=== PATIENT | male | born 1940 | race Caucasian/White ===

== ENCOUNTER 2017-01-18 05:41 | Inpatient (IN) | payer MEDICARE, OTHER ==
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
--- NOTE | ~2017-01-18 | DS ---
Discharge Summary [facility] [address] [place]. [address] NAME: CRIS VIGIL : 40 STATUS : DIS IN PAT#: [id number] AGE: 76 ADM/REG DATE : 01/19/17 MR#: [id number] REPORT SERV DATE: 01/25/17 DICTATED BY: RANJAN CALL DATE: 01/20/17 REPORT STATUS : Draft TRANSCRIBED BY: MODL DATE: 01/20/17 ADMISSION DATE: 01/19/2017 DISCHARGE DATE: 01/20/2017 DISCHARGE DIAGNOSES: 1. Probable aspiration episode with aspiration pneumonitis. 2. CT of the chest revealing possible infiltrates consistent with aspiration pneumonia, however, the patient has not show any clinical signs consistent with a pneumonia. 3. Baseline chronic hypoxic respiratory failure, 2 L of oxygen at baseline with BiPAP nightly. This has been stable throughout the hospital stay. 4. Chronic obstructive pulmonary disease. 5. Pulmonary hypertension. 6. Functional paraplegia. 7. History of cervical spine injury. 8. Neurogenic bladder. 9. History of endocarditis as well as history of liver abscess. CONSULTS: None. PROCEDURES: None. HOSPITAL COURSE: This is a 76-year-old gentleman who was admitted to the hospital with a possible aspiration pneumonia. For details, please refer to my own H and P. In summary, the patient was admitted and was simply observed as patient appeared nearly back at his baseline. The patient was afebrile and the patient's initial lab work showed no leukocytosis. Instead of starting him on antibiotics, the patient was simply monitored. On the second day of the hospital stay, CT of the chest revealed what appears to be infiltrates in the bilateral lower lobes more prominent on the right lower lobe consistent with a history of possible aspiration. Even then the patient did not exhibit any symptoms of pneumonia including fever, cough, worsening shortness of breath. The patient's lab work also continued to be normal with normal white blood cell count and normal procalcitonin level. Given his clinical history and CT imaging, the patient was started on Augmentin by p.o. After two days of uncomplicated hospital stay with simple monitoring, patient is now being discharged home with close outpatient followup instructions. Of note, the patient was seen by our physical therapy and was recommended to be discharged to a SNF, however, the patient refused, and given the patient has baseline history of functional paraplegia and the fact that he has a lot of help at home, it was felt reasonable to still discharge him home. DISPOSITION: Home. DISCHARGE MEDICATIONS: No changes other than a seven-day course of Augmentin 875 mg p.o. b.i.d. FOLLOWUP: 1. Please follow up with PCP in the next one to two weeks. 2. Please follow up with solvent recoverer as already scheduled, which is in five days. Discharge Summary [address] [address] NAME: CRIS VIGIL : 40 STATUS : DIS IN PAT#: [id number] AGE: 76 ADM/REG DATE : 01/19/17 MR#: [id number] REPORT SERV DATE: 01/25/17 DICTATED BY: RANJAN CALL DATE: 01/20/17 REPORT STATUS : Draft TRANSCRIBED BY: ELSY DATE: 01/20/17 TIME SPENT: A total of 40 minutes spent in coordinating this patient's discharge today. COURTNEY/ELSY Ranjan Call MD / [id number] CC: MD VILMA Crouch BETHANY ELAINE
[~2017-01-18 05:41] MED LIST: ADVAIR250 INH; ADVIL PO; AVINZA PO; AVINZA60 PO; BACDS PO; BACLOFEN20 MG PO; BUM1 PO; C2 PO; COMBIVENT INH; COMBIVENT RESPIM4 GM INH; CONSTULOSE PO; COUMADIN3 MG PO; DEPO-TESTOS200 MG/ML IM; DSS PO; DUONEB INH; ELIQUIS 5 MG TAB5 MG PO; ENULOSE PO; FLOMAX4 PO; KLOR-CON M2020 MEQ PO; LACT30UDL PO; LEVAQUIN750 MG PO; LEVSINTAB PO; LIOR10 PO; MAXIMUM D3 PO; MONODOX100 MG PO; MSCONT60 PO; MSCONTIN PO; NEUR100 PO; NEUR300 PO; OMNICEF300 PO; PRILO PO; PROVENTSOL INH; PROVHFA INH; PROVIGIL1 PO; PROVIGIL2 PO; REFRES1 OPH; ROCEPHIN2 G2 IM; ROXICODONE30 MG PO; SANTYL250 MG/GM TOP; SILVADENE1 % TOP; TESTOSTERONE IM; TESTOSTERONE INJ IM; VIBRATAB100 MG PO; ZINC OTC PO; ZINC TOP; ZITH250 PO
[2017-01-18 08:10] LABS: BASOPHILS 0 %; EOSINOPHILS 0 %; HEMATOCRIT 40.1 % (40.0-51.0); HEMOGLOBIN 13.3 g/dL (13.6-17.8); IMMATURE GRANULOCYTES 0.1 %; IMMATURE GRANULOCYTES ABSOLUTE 0.01 10/3/uL (0.0-0.11); LYMPHOCYTES 6.6 %; LYMPHOCYTES ABSOLUTE 0.46 10/3/uL (0.67-4.30); MEAN CORPUSCULAR HEMOGLOB 31.7 pg (26.0-34.0); MEAN CORPUSCULAR VOLUME 95.5 fL (80-100); MEAN PLATELET VOLUME 11.2 fL (9.2-13.0); MONOCYTES 0.6 %; MONOCYTES ABSOLUTE 0.04 10/3/uL (0.21-1.20); NEUTROPHILS 92.7 %; NEUTROPHILS ABSOLUTE 6.49 10/3/uL (2.02-8.40); PLATELET COUNT 150 10/3/uL (150-400); RBC DISTRIBUTION WIDTH 13.5 % (12.0-16.0)
[2017-01-18 08:12] LABS: MANUAL DIFF NO %; MEAN CORPUS HGB CONC 33.2 g/dL (32.0-36.0)
[2017-01-18 08:25] LABS: A/G RATIO 0.7 (0.7-1.9); ALBUMIN 2.8 G/DL (3.5-5.0); ALKALINE PHOSPHATASE 70 U/L (45-117); BUN (BLOOD UREA NITROGEN) 23 MG/DL (6-23); CALCIUM, SERUM 8.7 MG/DL (8.5-10.4); CHLORIDE, SERUM 104 MMOL/L (96-112); CO2 (CARBON DIOXIDE) 32 MMOL/L (24-34); CREATININE 0.94 MG/DL (0.70-1.30); GFR AFRICAN AMERICAN 91 ML/MIN (>=60); GFR NON AFRICAN AMERICAN 78 ML/MIN (>=60); GLOBULIN 3.9 G/DL (2.5-4.1); GLUCOSE, SERUM 169 MG/DL (60-99); POTASSIUM, SERUM 4.3 MMOL/L (3.5-5.3); SGOT(AST) 18 U/L (5-40); SGPT(ALT) 18 U/L (5-65); SODIUM, SERUM 144 MMOL/L (135-148); TOTAL BILIRUBIN 0.4 MG/DL (0-1.2); TOTAL PROTEIN 6.7 G/DL (6.0-8.5)
[2017-01-18 10:33] LABS: PROCALCITONIN 0.29 ng/mL (<0.5)
[2017-01-18 14:09] LABS: ASCORBIC ACID (UR NOT ORDER) NEG (NEG); BILIRUBIN, URINE NEGATIVE (NEG); KETONE, URINE NEGATIVE (NEG); LEUKOCYTE ESTERASE(NOT OR LARGE (NEG); WBC (NOT ORDERED) (RFLEX) 141 (0-5)
[2017-01-19 06:10] LABS: CALCIUM, SERUM 8.9 MG/DL (8.5-10.4); CHLORIDE, SERUM 108 MMOL/L (96-112); CO2 (CARBON DIOXIDE) 31 MMOL/L (24-34); CREATININE 0.76 MG/DL (0.70-1.30); GFR AFRICAN AMERICAN 103 ML/MIN (>=60); GFR NON AFRICAN AMERICAN 89 ML/MIN (>=60); GLUCOSE, SERUM 137 MG/DL (60-99); POTASSIUM, SERUM 3.9 MMOL/L (3.5-5.3); SODIUM, SERUM 145 MMOL/L (135-148)
[2017-01-19 06:13] LABS: BUN (BLOOD UREA NITROGEN) 19 MG/DL (6-23)
[2017-01-19 06:25] LABS: BASOPHILS 0.1 %; BASOPHILS ABSOLUTE 0.01 10/3/uL (0.0-0.16); EOSINOPHILS 0 %; HEMATOCRIT 38.1 % (40.0-51.0); HEMOGLOBIN 12.5 g/dL (13.6-17.8); IMMATURE GRANULOCYTES 0.2 %; IMMATURE GRANULOCYTES ABSOLUTE 0.02 10/3/uL (0.0-0.11); LYMPHOCYTES 10.4 %; LYMPHOCYTES ABSOLUTE 1.04 10/3/uL (0.67-4.30); MANUAL DIFF NO %; MEAN CORPUS HGB CONC 32.8 g/dL (32.0-36.0); MEAN CORPUSCULAR HEMOGLOB 31.1 pg (26.0-34.0); MEAN CORPUSCULAR VOLUME 94.8 fL (80-100); MEAN PLATELET VOLUME 11.2 fL (9.2-13.0); MONOCYTES 5.3 %; MONOCYTES ABSOLUTE 0.53 10/3/uL (0.21-1.20); PLATELET COUNT 164 10/3/uL (150-400); RBC DISTRIBUTION WIDTH 13.8 % (12.0-16.0); RED CELL COUNT 4.02 10/6/uL (4.7-6.1)
[2017-01-20 04:40] LABS: BASOPHILS 0.1 %; BASOPHILS ABSOLUTE 0.01 10/3/uL (0.0-0.16); EOSINOPHILS ABSOLUTE 0.07 10/3/uL (0.0-0.53); HEMOGLOBIN 13.6 g/dL (13.6-17.8); IMMATURE GRANULOCYTES 0.3 %; IMMATURE GRANULOCYTES ABSOLUTE 0.02 10/3/uL (0.0-0.11); LYMPHOCYTES 19.9 %; LYMPHOCYTES ABSOLUTE 1.43 10/3/uL (0.67-4.30); MANUAL DIFF NO %; MEAN CORPUS HGB CONC 33.2 g/dL (32.0-36.0); MEAN CORPUSCULAR HEMOGLOB 31.3 pg (26.0-34.0); MEAN CORPUSCULAR VOLUME 94.3 fL (80-100); MEAN PLATELET VOLUME 10.5 fL (9.2-13.0); MONOCYTES 7.1 %; MONOCYTES ABSOLUTE 0.51 10/3/uL (0.21-1.20); NEUTROPHILS 71.6 %; NEUTROPHILS ABSOLUTE 5.16 10/3/uL (2.02-8.40); PLATELET COUNT 181 10/3/uL (150-400); RBC DISTRIBUTION WIDTH 13.7 % (12.0-16.0); RED CELL COUNT 4.35 10/6/uL (4.7-6.1); WHITE BLOOD CELLS 7.2 10/3/uL (4.5-10.5)
[2017-01-20 04:49] LABS: BUN (BLOOD UREA NITROGEN) 16 MG/DL (6-23); CALCIUM, SERUM 9.1 MG/DL (8.5-10.4); CHLORIDE, SERUM 106 MMOL/L (96-112); CO2 (CARBON DIOXIDE) 30 MMOL/L (24-34); CREATININE 0.76 MG/DL (0.70-1.30); GFR AFRICAN AMERICAN 103 ML/MIN (>=60); GFR NON AFRICAN AMERICAN 89 ML/MIN (>=60); POTASSIUM, SERUM 4.1 MMOL/L (3.5-5.3); SODIUM, SERUM 143 MMOL/L (135-148)
[2017-01-20 04:53] LABS: GLUCOSE, SERUM 103 MG/DL (60-99)
[2017-01-20 09:52] LABS: BE (BASE EXCESS) 6.5 MEQ/L (0 +/- 2.5); CARBOXYHEMOGLOBIN 0.3 % (0-3); HCO3 (ACTUAL BICARBONATE) 31.6 MEQ/L (23-27); HEMOBLOGIN CONTENT 15.6 G/DL (14-18); INSTRUMENT SERIAL # 35151; METHEMOGLOBIN 0.9 % (0-3); O2 CONTENT 19.6 VOL% (18-24); PCO2 (CO2 TENSION) 46 MMHG (35-45); PO2 (O2 TENSION) 60 MMHG (79-93); pH 7.45 (7.37-7.43)
[2017-01-20 09:53] LABS: ALLENS TEST Pos; SAMPLE Arterial
[2017-01-20] MEDS ORDERED: AUG875 PO (10:07)
== END 2017-01-20 16:36 | disposition home health service (06) | DRG 178 ==
LOC: 6NO 05:41
PROVIDERS: Internal Medicine; Internal Medicine Pulmonary Disease
DX: J69.0 Pneumonitis due to inhalation of food and vomit (principal); J96.11 Chronic respiratory failure with hypoxia; I27.2 Other secondary pulmonary hypertension; Z99.81 Dependence on supplemental oxygen; N31.9 Neuromuscular dysfunction of bladder, unspecified; J44.9 Chronic obstructive pulmonary disease, unspecified; Z86.19 Personal history of other infectious and parasitic diseases
CPT/HCPCS: 36600; 71010; 71250; 80048; 80053; 81001; 82805; 84145; 85025; 87086; 92610-GN; 94640; 97162-GP; A9270-GY; G8978-CL-GP; G8979-CK-GP; G8996-CI-GN; G8997-CI-GN; G8998-CI-GN

== ENCOUNTER 2017-02-03 03:59 | Inpatient (IN) | payer MEDICARE ==
--- NOTE | ~2017-02-03 | HP ---
History And Physical [address] [place]. [address] NAME: CRIS VIGIL : 40 STATUS : ADM IN [facility]#: [id number] AGE: 76 ADM/REG DATE : 02/03/17 MR#: [id number] REPORT SERV DATE: 02/03/17 DICTATED BY: EDDIE RAMIREZ DATE: 02/03/17 REPORT STATUS : Draft TRANSCRIBED BY: MODL DATE: 02/03/17 DATE OF ADMISSION: 02/03/2017 CHIEF COMPLAINT: A 76-year-old male presenting with shortness of breath and cough. HISTORY OF PRESENT ILLNESS: The patient's history was obtained through careful interview with the patient coupled with review of [facility] medical records. The patient was hospitalized in late 12/2016 and in early 01/2017 with presumptive aspiration pneumonia. He improved with antibiotics and was sent home with a total antibiotic course that lasted 10 days. He had considerable improvement in his symptoms with antibiotics, but completed antibiotics on 01/30/2017. Unfortunately by 01/31/2017 and 02/01/2017, the patient began to develop a low-grade fever again, and states in the last 48 hours, he has had shortness of breath characterized by dyspnea on exertion and increasing nonproductive cough and persistent subjective fevers and chills. No chest pain, but he has had lightheadedness and orthostatics symptoms. He does not recall any aspiration events in the last week. He describes lower back pain, chronic condition, aching quality, 7 to 8 out of 10 severity. No sciatica or radiation. No history of diabetes. No change of bowel or bladder habit. REVIEW OF SYSTEMS: Otherwise, a 14-point review of systems was obtained and was negative. PAST MEDICAL HISTORY: 1. Strep pneumonia, septic toxic shock. 2. Aspiration pneumonia. 3. COPD, on 2 L nasal cannula oxygen chronically. 4. Systolic congestive heart failure, ejection fraction 45% with left ventricular hypertrophy and pulmonary hypertension. 5. Chronic paraplegia. 6. Cervical spine injury and back injury. 7. Neurogenic bladder with bilateral hydronephrosis, followed by Dr. Telles. 8. Endocarditis of the tricuspid valve with strep viridans bacteremia. 9. Liver abscess with bile duct injury and stent placement. 10.DVT, on chronic Eliquis. 11.Sacral decubitus, followed by Dr. Stewart. 12.Benign prostatic hypertrophy. 13.Obstructive sleep apnea, on BiPAP. 14.Thyroid nodule with negative biopsy. 15.MRSA. History And Physical [address] [address] NAME: CRIS VIGIL : 40 STATUS : ADM IN PAT#: [id number] AGE: 76 ADM/REG DATE : 02/03/17 MR#: [id number] REPORT SERV DATE: 02/03/17 DICTATED BY: EDDIE RAMIREZ DATE: 02/03/17 REPORT STATUS : Draft TRANSCRIBED BY: ELSY DATE: 02/03/17 PAST SURGICAL HISTORY: 1. C3-C4 fusion. 2. IVC filter placement. 3. Small-bowel obstruction surgery as a child. 4. Cholecystectomy. ALLERGIES: NO KNOWN DRUG ALLERGIES. SOCIAL HISTORY: Quit smoking in 1987. No alcohol abuse. He is . Lives with a disabled son in his 50s. Lives in [place], [place]. FAMILY HISTORY: Heart disease. CURRENT MEDICATIONS: Include: 1. Albuterol inhaler. 2. Eliquis 5 mg p.o. b.i.d. 3. Baclofen 10 mg with breakfast and lunch, 20 mg at supper. 4. Bumex p.r.n. 5. Vitamin D. 6. Colace 200 mg p.o. b.i.d. 7. Aricept 5 mg p.o. at bedtime. 8. Advair inhaled twice a day. 9. Neurontin 100 mg in the morning and 300 mg at night. 10.Levsin 0.125 mg every 8 hours p.r.n. 11.Combivent. 12.Lactulose. 13.Provigil 100 mg p.o. b.i.d. 14.Omeprazole 20 mg p.o. daily. 15.Oxycodone 30 mg every four hours p.r.n. 16.Potassium 20 mEq p.o. daily. 17.Flomax 0.4 mg p.o. daily. 18.Testosterone every other week. PHYSICAL EXAMINATION: VITAL SIGNS: Temperature 98.5, pulse 102, blood pressure 102/52, respiratory rate 24, and O2 saturation 92% on 2 L nasal cannula. GENERAL: An ill-appearing male, in evidence of distress secondary to shortness of breath and cough. HEENT: Pupils equal, round, and reactive to light. No conjunctival pallor. No scleral icterus. Nares are patent. Oropharynx is clear of obstruction. Moist mucous membranes. NECK: Trachea midline. No thyromegaly. LYMPH: No cervical lymphadenopathy. No supraclavicular lymphadenopathy. RESPIRATORY: The patient has diminished breath sounds at the base of lungs, maybe some mild bibasilar crackles. I do not appreciate focal egophony. No wheezes. The patient has a labored respiratory effort though. CARDIOVASCULAR: Tachycardic. Regular rhythm. No murmurs, rubs, or gallops. No extremity History And Physical [address] [address] NAME: CRIS VIGIL : 40 STATUS : ADM IN [facility]#: [id number] AGE: 76 ADM/REG DATE : 02/03/17 MR#: [id number] REPORT SERV DATE: 02/03/17 DICTATED BY: EDDIE RAMIREZ DATE: 02/03/17 REPORT STATUS : Draft TRANSCRIBED BY: ELSY DATE: 02/03/17 edema is appreciated. ABDOMEN: Soft, nontender, nondistended. Normal bowel sounds auscultated throughout. No hepatosplenomegaly. DERMATOLOGICAL: Warm and dry extremities. No pallor. No cyanosis. PSYCHIATRIC: Normal affect. Good mood. Alert and oriented x3. LABORATORY DATA: White blood cell count 14.7, hemoglobin 15, hematocrit 45, platelets 165. Sodium 138, potassium 4.3, chloride 97, bicarb 28, BUN 25, creatinine 1.0, glucose 232. Lactic acid 1.7. ABG demonstrates pH 7.38, PaCO2 of 52, PaO2 of 63, and bicarb of 31. STUDIES: 1. Chest x-ray reported from outlying facility shows bilateral pneumonia. 2. EKG by my own evaluation shows sinus tachycardia. ASSESSMENT AND PLAN: 1. Recurrent pneumonia, question possible aspiration. We will check a swallow study. Blood cultures were checked at [facility] in [place]. Placed on IV antibiotics. 2. Sepsis. White blood cell count of 14.7, tachycardia, tachypnea. Check blood cultures which were done at [facility]. Place on IV antibiotics. 3. Chronic paraplegia from back injury and cervical spine surgery and injury. 4. Decubitus ulcer, Wound Care consult. 5. Hyperglycemia. Check hemoglobin A1c. Placed on sliding scale insulin. 6. Obstructive sleep apnea. Continue home BiPAP. 7. Chronic obstructive pulmonary disease. Placed on Duo nebulizers. 8. Neurogenic bladder. Check urinalysis. 9. Chronic diastolic congestive heart failure with pulmonary hypertension. DAX/ELSY Eddie Ramirez M.D. / [id number] CC: MD Brayan Crouch M.D.
--- NOTE | ~2017-02-03 | DS ---
Discharge Summary [address] [place]. [address] NAME: CRIS VIGIL : 40 STATUS : DIS IN PAT#: [id number] AGE: 76 ADM/REG DATE : 02/03/17 MR#: [id number] REPORT SERV DATE: 02/10/17 DICTATED BY: ALMA APPLE DATE: 02/09/17 REPORT STATUS : Draft TRANSCRIBED BY: ELSY DATE: 02/09/17 ADMISSION DATE: 02/03/2017 DISCHARGE DATE: 02/09/2017 DISCHARGE DIAGNOSES: 1. Pneumonia. 2. Chronic hypercapnic respiratory failure. 3. Chronic obstructive pulmonary disease without exacerbation at 2 L nasal cannula, home. 4. Chronic systolic heart failure. 5. Cervical spine injury/paraplegia. 6. Decubitus ulcer present on admission. Continue wound care by Home Health. 7. Neurogenic bladder. 8. Pulmonary hypertension/cor pulmonale. 9. History of deep vein thrombosis with IVC filter and on Eliquis. 10.Chronic pain. 11.Obstructive sleep apnea on home BiPAP. DISCHARGE MEDICATIONS: Include: 1. Eliquis 5 mg p.o. b.i.d. 2. Baclofen 10 mg p.o. with breakfast and lunch. 3. Baclofen 20 mg p.o. with supper. 4. Cholecalciferol 10,000 units p.o. q. seven days. 5. Colace 200 mg p.o. b.i.d. 6. Aricept 5 mg p.o. at bedtime. 7. Neurontin 100 mg p.o. in the morning. 8. Neurontin 300 mg at bedtime. 9. Lactulose 20 mL p.o. q.48 hours. 10.Provigil 100 mg p.o. b.i.d. 11.Prilosec 20 mg p.o. b.i.d. 12.Flomax 0.4 mg p.o. daily. 13.Albuterol sulfate 0.083%, 1 neb inhaled b.i.d. 14.Advair Diskus 250/50 mcg one puff inhaled b.i.d. 15.Combivent 1 puff inhaled four times a day p.r.n. 16.Bumex 1 to 2 mg p.o. daily p.r.n. edema. 17.Levsin 0.125 p.o. q.8 hours p.r.n. 18.Oxycodone 30 mg p.o. q.i.d. p.r.n. 19.Testosterone 1 dose IM q.14 days. 20.Augmentin 875 mg p.o. b.i.d. 21.Doxycycline 100 mg p.o. b.i.d. 22.Florastor cap 1 tab p.o. b.i.d. DISPOSITION AND FOLLOWUP: The patient medically stable for discharge home with Home Health physical therapy and wound care. Follow up with primary care physician in one week. HISTORY AND PHYSICAL: Per initial assessment. Discharge Summary [address] [address] NAME: CRIS VIGIL : 40 STATUS : DIS IN PAT#: [id number] AGE: 76 ADM/REG DATE : 02/03/17 MR#: [id number] REPORT SERV DATE: 02/10/17 DICTATED BY: ALAM APPLE DATE: 02/09/17 REPORT STATUS : Draft TRANSCRIBED BY: ELSY DATE: 02/09/17 DISCHARGE VITALS: Temperature 97.3, heart rate 73, blood pressure 111/54, respiratory rate 18, O2 saturation 97 on 2 L. DISCHARGE LABS: WBC of 8, hemoglobin of 14.4, hematocrit 43.9, platelets 168. Sodium 142, potassium 4.4, chloride 105, bicarb 29, BUN 19, creatinine 0.75, magnesium 2.5. IMAGIN. Chest x-ray. Impression: Worsening right basilar airspace consolidation potential of developing mild left basilar consolidation on 02/03/2017. 2. Chest x-ray. Impression: Decreased right basilar infiltrate. Improved aeration of the left base with minimal residual linear atelectasis on 02/06/2017. 3. Swallow evaluation. Impression: No aspiration. The patient exhibits flash penetration with thin liquids. The patient also noted to have mild to moderate residual with clears. The patient with large osteophytes of the esophagus, but the patient able to protect airway above. RECOMMENDATION: The patient must be fully upright for all p.o. intake. The patient must take small sips, small bites. The patient must swallow two times per bolus. The patient was educated regarding the above. HOSPITAL COURSE: The patient was admitted for further management of sepsis and pneumonia. The patient was started on vancomycin and Maxipime, which he continued throughout the course of the hospital stay. Wound Care was consulted for decubitus ulcers. The patient was placed back on home diuretics, inhalers. The patient responded well to medical management. By day of discharge, afebrile. WBCs within normal limit. No evidence of sepsis. The patient will be discharged with home regimen as described above. Follow up with primary care physician in one week. Home Health to follow as an outpatient, physical therapy and wound care. Instructed to take all medications as described above. Total time for discharge planning 35 minutes. DICTATED BY: Zak Scott MD RLV/ELSY Zak Scott MD / [id number] CC: MD VILMA Hernandez BETHANY ELAINE
[~2017-02-03 03:59] MED LIST changes: +AUG875 PO
[2017-02-03] MEDS ORDERED: ALBUTEROL0.083 % INH (04:34)
[2017-02-03] MEDS ORDERED: MAXIMUM D3 PO (04:35)
[2017-02-03] MEDS ORDERED: ARICEPT5 PO ×2 (04:35→04:40)
[2017-02-03] MEDS ORDERED: ELIQUIS 5 MG TAB5 MG PO (04:36)
[2017-02-03] MEDS ORDERED: DSS PO (04:38)
[2017-02-03] MEDS ORDERED: ADVAIR250 INH (04:38)
[2017-02-03] MEDS ORDERED: COMBIVENT RESPIM4 GM INH (04:38)
[2017-02-03] MEDS ORDERED: ROXICODONE30 MG PO (04:38)
[2017-02-03] MEDS ORDERED: FLOMAX4 PO (04:38)
[2017-02-03] MEDS ORDERED: NEUR300 PO (04:39)
[2017-02-03] MEDS ORDERED: LIOR10 PO (04:39)
[2017-02-03] MEDS ORDERED: BACLOFEN20 MG PO (04:39)
[2017-02-03] MEDS ORDERED: BUM1 PO (04:39)
[2017-02-03] MEDS ORDERED: NEUR100 PO (04:39)
[2017-02-03] MEDS ORDERED: KDUR20 PO (04:39)
[2017-02-03] MEDS ORDERED: PRILO PO (04:40)
[2017-02-03] MEDS ORDERED: PROVIGIL1 PO (04:40)
[2017-02-03] MEDS ORDERED: CONSTULOSE PO (04:41)
[2017-02-03] MEDS ORDERED: LEVSINTAB PO/SL (04:41)
[2017-02-03] MEDS ORDERED: TESTOSTERONE IM (04:42)
[2017-02-03 06:52] LABS: BASOPHILS 0.2 %; BASOPHILS ABSOLUTE 0.02 10/3/uL (0.0-0.16); EOSINOPHILS 0.1 %; EOSINOPHILS ABSOLUTE 0.01 10/3/uL (0.0-0.53); HEMATOCRIT 40.4 % (40.0-51.0); HEMOGLOBIN 13.3 g/dL (13.6-17.8); IMMATURE GRANULOCYTES 0.5 %; IMMATURE GRANULOCYTES ABSOLUTE 0.06 10/3/uL (0.0-0.11); LYMPHOCYTES ABSOLUTE 1.04 10/3/uL (0.67-4.30); MEAN CORPUS HGB CONC 32.9 g/dL (32.0-36.0); MEAN CORPUSCULAR HEMOGLOB 31.7 pg (26.0-34.0); MEAN CORPUSCULAR VOLUME 96.2 fL (80-100); MEAN PLATELET VOLUME 10.7 fL (9.2-13.0); MONOCYTES 4.6 %; NEUTROPHILS 86.6 %; NEUTROPHILS ABSOLUTE 11.32 10/3/uL (2.02-8.40); PLATELET COUNT 162 10/3/uL (150-400); RBC DISTRIBUTION WIDTH 13.6 % (12.0-16.0)
[2017-02-03 06:53] LABS: MANUAL DIFF NO %; WHITE BLOOD CELLS 13.1 10/3/uL (4.5-10.5)
[2017-02-03 06:56] LABS: INTERNATIONAL NORMAL RATI 1.7 UNITS (-)
[2017-02-03 06:57] LABS: PROTIME (NOT ORD) 19.8 SEC (12.0-14.5)
[2017-02-03 07:12] LABS: PARTIAL THROMBO TIME 48.5 SEC (22.5-37.2)
[2017-02-03 07:15] LABS: A/G RATIO 0.8 (0.7-1.9); ALBUMIN 2.7 G/DL (3.5-5.0); ALKALINE PHOSPHATASE 63 U/L (45-117); BUN (BLOOD UREA NITROGEN) 20 MG/DL (6-23); CALCIUM, SERUM 8.2 MG/DL (8.5-10.4); CHLORIDE, SERUM 107 MMOL/L (96-112); CK-MB 2.1 NG/ML; CO2 (CARBON DIOXIDE) 29 MMOL/L (24-34); CPK 37 U/L (0-200); CREATININE 0.76 MG/DL (0.70-1.30); GFR AFRICAN AMERICAN 103 ML/MIN (>=60); GFR NON AFRICAN AMERICAN 89 ML/MIN (>=60); GLOBULIN 3.3 G/DL (2.5-4.1); GLUCOSE, SERUM 89 MG/DL (60-99); POTASSIUM, SERUM 4.3 MMOL/L (3.5-5.3); SGOT(AST) 21 U/L (5-40); SGPT(ALT) 21 U/L (5-65); SODIUM, SERUM 142 MMOL/L (135-148); TOTAL BILIRUBIN 0.8 MG/DL (0-1.2); TROPONIN I <0.02 NG/ML (<0.05); ULTRASENSITIVE TSH 0.126 MCIU/ML (0.358-3.740)
[2017-02-03 07:21] LABS: B NATRIURETIC PEPTIDE (BNP) 149.7 PG/ML (< 100.0)
[2017-02-03 07:29] LABS: GLYCOHEMOGLOBIN (HbA1c) 5.3 % (4.7-6.1)
[2017-02-03 11:42] LABS: PROCALCITONIN 0.33 ng/mL (<0.5)
[2017-02-03 16:38] LABS: ASCORBIC ACID (UR NOT ORDER) NEG (NEG); BILIRUBIN, URINE NEGATIVE (NEG); KETONE, URINE NEGATIVE (NEG); LEUKOCYTE ESTERASE(NOT OR TRACE (NEG); WBC (NOT ORDERED) (RFLEX) 2 (0-5)
[2017-02-04 04:28] LABS: BASOPHILS 0.1 %; BASOPHILS ABSOLUTE 0.01 10/3/uL (0.0-0.16); EOSINOPHILS 1.3 %; HEMATOCRIT 39.3 % (40.0-51.0); HEMOGLOBIN 12.9 g/dL (13.6-17.8); IMMATURE GRANULOCYTES 0.3 %; IMMATURE GRANULOCYTES ABSOLUTE 0.02 10/3/uL (0.0-0.11); LYMPHOCYTES 16.6 %; LYMPHOCYTES ABSOLUTE 1.24 10/3/uL (0.67-4.30); MEAN CORPUS HGB CONC 32.8 g/dL (32.0-36.0); MEAN CORPUSCULAR HEMOGLOB 31.5 pg (26.0-34.0); MEAN CORPUSCULAR VOLUME 95.9 fL (80-100); MEAN PLATELET VOLUME 10.7 fL (9.2-13.0); MONOCYTES 6.8 %; MONOCYTES ABSOLUTE 0.51 10/3/uL (0.21-1.20); NEUTROPHILS 74.9 %; NEUTROPHILS ABSOLUTE 5.59 10/3/uL (2.02-8.40); PLATELET COUNT 145 10/3/uL (150-400); RBC DISTRIBUTION WIDTH 13.5 % (12.0-16.0)
[2017-02-04 04:32] LABS: MANUAL DIFF NO %; WHITE BLOOD CELLS 7.5 10/3/uL (4.5-10.5)
[2017-02-04 04:47] LABS: CALCIUM, SERUM 8.5 MG/DL (8.5-10.4); CHLORIDE, SERUM 108 MMOL/L (96-112); CO2 (CARBON DIOXIDE) 30 MMOL/L (24-34); CREATININE 0.74 MG/DL (0.70-1.30); GFR AFRICAN AMERICAN 104 ML/MIN (>=60); GFR NON AFRICAN AMERICAN 90 ML/MIN (>=60); GLUCOSE, SERUM 87 MG/DL (60-99); POTASSIUM, SERUM 3.8 MMOL/L (3.5-5.3); SODIUM, SERUM 141 MMOL/L (135-148)
[2017-02-04 04:49] LABS: BUN (BLOOD UREA NITROGEN) 16 MG/DL (6-23)
[2017-02-05 06:57] LABS: BASOPHILS 0.3 %; BASOPHILS ABSOLUTE 0.02 10/3/uL (0.0-0.16); EOSINOPHILS 2.6 %; EOSINOPHILS ABSOLUTE 0.16 10/3/uL (0.0-0.53); HEMATOCRIT 39.9 % (40.0-51.0); HEMOGLOBIN 13.3 g/dL (13.6-17.8); IMMATURE GRANULOCYTES 0.2 %; IMMATURE GRANULOCYTES ABSOLUTE 0.01 10/3/uL (0.0-0.11); LYMPHOCYTES 22.2 %; LYMPHOCYTES ABSOLUTE 1.39 10/3/uL (0.67-4.30); MEAN CORPUS HGB CONC 33.3 g/dL (32.0-36.0); MEAN CORPUSCULAR HEMOGLOB 31.5 pg (26.0-34.0); MEAN CORPUSCULAR VOLUME 94.5 fL (80-100); MEAN PLATELET VOLUME 10.7 fL (9.2-13.0); MONOCYTES 5.8 %; MONOCYTES ABSOLUTE 0.36 10/3/uL (0.21-1.20); NEUTROPHILS 68.9 %; NEUTROPHILS ABSOLUTE 4.32 10/3/uL (2.02-8.40); PLATELET COUNT 160 10/3/uL (150-400); RBC DISTRIBUTION WIDTH 13.6 % (12.0-16.0); RED CELL COUNT 4.22 10/6/uL (4.7-6.1); WHITE BLOOD CELLS 6.3 10/3/uL (4.5-10.5)
[2017-02-05 07:05] LABS: MANUAL DIFF NO %
[2017-02-05 07:11] LABS: CALCIUM, SERUM 8.8 MG/DL (8.5-10.4); CHLORIDE, SERUM 109 MMOL/L (96-112); CO2 (CARBON DIOXIDE) 33 MMOL/L (24-34); CREATININE 0.65 MG/DL (0.70-1.30); GFR AFRICAN AMERICAN 110 ML/MIN (>=60); GFR NON AFRICAN AMERICAN 95 ML/MIN (>=60); GLUCOSE, SERUM 83 MG/DL (60-99); POTASSIUM, SERUM 3.9 MMOL/L (3.5-5.3); SODIUM, SERUM 145 MMOL/L (135-148)
[2017-02-05 07:23] LABS: BUN (BLOOD UREA NITROGEN) 12 MG/DL (6-23)
[2017-02-05 08:19] LABS: PROCALCITONIN 0.22 ng/mL (<0.5)
[2017-02-06 04:42] LABS: BASOPHILS 0.3 %; BASOPHILS ABSOLUTE 0.02 10/3/uL (0.0-0.16); EOSINOPHILS 1.7 %; EOSINOPHILS ABSOLUTE 0.13 10/3/uL (0.0-0.53); HEMATOCRIT 41.3 % (40.0-51.0); HEMOGLOBIN 13.6 g/dL (13.6-17.8); IMMATURE GRANULOCYTES 0.1 %; IMMATURE GRANULOCYTES ABSOLUTE 0.01 10/3/uL (0.0-0.11); LYMPHOCYTES 16.1 %; LYMPHOCYTES ABSOLUTE 1.22 10/3/uL (0.67-4.30); MEAN CORPUS HGB CONC 32.9 g/dL (32.0-36.0); MEAN CORPUSCULAR HEMOGLOB 31.3 pg (26.0-34.0); MEAN CORPUSCULAR VOLUME 95.2 fL (80-100); MEAN PLATELET VOLUME 10.4 fL (9.2-13.0); MONOCYTES 5.8 %; MONOCYTES ABSOLUTE 0.44 10/3/uL (0.21-1.20); NEUTROPHILS ABSOLUTE 5.74 10/3/uL (2.02-8.40); PLATELET COUNT 170 10/3/uL (150-400); RBC DISTRIBUTION WIDTH 13.6 % (12.0-16.0); RED CELL COUNT 4.34 10/6/uL (4.7-6.1); WHITE BLOOD CELLS 7.6 10/3/uL (4.5-10.5)
[2017-02-06 04:50] LABS: MANUAL DIFF NO %; PHOSPHORUS, SERUM 2.9 MG/DL (2.5-4.5)
[2017-02-07 04:49] LABS: BUN (BLOOD UREA NITROGEN) 15 MG/DL (6-23); CALCIUM, SERUM 8.9 MG/DL (8.5-10.4); CHLORIDE, SERUM 107 MMOL/L (96-112); CO2 (CARBON DIOXIDE) 33 MMOL/L (24-34); CREATININE 0.67 MG/DL (0.70-1.30); GFR AFRICAN AMERICAN 108 ML/MIN (>=60); GFR NON AFRICAN AMERICAN 93 ML/MIN (>=60); GLUCOSE, SERUM 98 MG/DL (60-99); POTASSIUM, SERUM 4.2 MMOL/L (3.5-5.3); SODIUM, SERUM 142 MMOL/L (135-148)
[2017-02-09 04:44] LABS: BASOPHILS 0.4 %; BASOPHILS ABSOLUTE 0.03 10/3/uL (0.0-0.16); EOSINOPHILS 3.8 %; HEMATOCRIT 43.9 % (40.0-51.0); HEMOGLOBIN 14.4 g/dL (13.6-17.8); IMMATURE GRANULOCYTES 1.1 %; IMMATURE GRANULOCYTES ABSOLUTE 0.09 10/3/uL (0.0-0.11); LYMPHOCYTES 21.6 %; LYMPHOCYTES ABSOLUTE 1.72 10/3/uL (0.67-4.30); MANUAL DIFF NO %; MEAN CORPUS HGB CONC 32.8 g/dL (32.0-36.0); MEAN CORPUSCULAR VOLUME 94.6 fL (80-100); MONOCYTES 7.4 %; MONOCYTES ABSOLUTE 0.59 10/3/uL (0.21-1.20); NEUTROPHILS 65.7 %; NEUTROPHILS ABSOLUTE 5.24 10/3/uL (2.02-8.40); PLATELET COUNT 168 10/3/uL (150-400); RBC DISTRIBUTION WIDTH 13.6 % (12.0-16.0); RED CELL COUNT 4.64 10/6/uL (4.7-6.1)
[2017-02-09 04:59] LABS: CALCIUM, SERUM 8.8 MG/DL (8.5-10.4); CHLORIDE, SERUM 108 MMOL/L (96-112); CO2 (CARBON DIOXIDE) 29 MMOL/L (24-34); CREATININE 0.75 MG/DL (0.70-1.30); GFR AFRICAN AMERICAN 103 ML/MIN (>=60); GFR NON AFRICAN AMERICAN 89 ML/MIN (>=60); GLUCOSE, SERUM 96 MG/DL (60-99); POTASSIUM, SERUM 4.4 MMOL/L (3.5-5.3); SODIUM, SERUM 142 MMOL/L (135-148)
[2017-02-09 05:02] LABS: BUN (BLOOD UREA NITROGEN) 19 MG/DL (6-23)
[2017-02-09] MEDS ORDERED: FLORASTOR250 MG PO (12:52)
[2017-02-09] MEDS ORDERED: AUG875 PO (12:56)
[2017-02-09] MEDS ORDERED: MONODOX100 MG PO (12:56)
[2017-02-09] MEDS ORDERED: IODOSORB TOP (12:59)
== END 2017-02-09 14:52 | disposition home health service (06) | DRG 871 ==
LOC: 6NO 03:59
PROVIDERS: Hospitalist; Internal Medicine
DX: A41.9 Sepsis, unspecified organism (principal); J18.9 Pneumonia, unspecified organism; J69.0 Pneumonitis due to inhalation of food and vomit; L89.159 Pressure ulcer of sacral region, unspecified stage; J96.11 Chronic respiratory failure with hypoxia; I27.2 Other secondary pulmonary hypertension; G82.20 Paraplegia, unspecified; I50.42 Chronic combined systolic (congestive) and diastolic (congestive) heart failure; N13.30 Unspecified hydronephrosis; J44.0 Chronic obstructive pulmonary disease with (acute) lower respiratory infection; N31.9 Neuromuscular dysfunction of bladder, unspecified; B95.3 Streptococcus pneumoniae as the cause of diseases classified elsewhere; Z99.81 Dependence on supplemental oxygen; G89.29 Other chronic pain; Y95 Nosocomial condition; N40.0 Benign prostatic hyperplasia without lower urinary tract symptoms; R73.9 Hyperglycemia, unspecified; Z87.891 Personal history of nicotine dependence; Z86.718 Personal history of other venous thrombosis and embolism; Z87.01 Personal history of pneumonia (recurrent); Z79.02 Long term (current) use of antithrombotics/antiplatelets; Z98.1 Arthrodesis status; Z90.49 Acquired absence of other specified parts of digestive tract; Z95.828 Presence of other vascular implants and grafts; Z86.14 Personal history of Methicillin resistant Staphylococcus aureus infection
CPT/HCPCS: 71010; 74230; 80048; 80053; 80202; 81001; 82550; 82553; 82962; 83036; 83735; 83880; 84100; 84145; 84443; 84484; 85025; 85347; 85610; 85730; 87449; 92610-GN; 92611-GN; 94640; 97162-GP; 97166-GO; 97530-GP; 97535-GO; A9270-GY; G8978-CL-GP; G8979-CK-GP; G8987-CK-GO; G8988-CJ-GO; G8996-CI-GN; G8996-CJ-GN; G8997-CI-GN; G8997-CJ-GN; G8998-CI-GN; G8998-CJ-GN; J0692; J1956; J3370